=== PATIENT | female | born 1955 | race Two or more races ===

== ENCOUNTER 2023-06-06 18:28 | Emergency (ER) | payer OTHER ==
[~2023-06-06] VITALS: Ht 157.5 cm; Wt 72.6 kg
== END 2023-06-06 21:36 | disposition home or self-care (01) ==
LOC: ER 18:28
DX: S89.82XA Other specified injuries of left lower leg, initial encounter (principal); W01.0XXA Fall on same level from slipping, tripping and stumbling without subsequent striking against object, initial encounter; Y93.E9 Activity, other interior property and clothing maintenance; Y92.018 Other place in single-family (private) house as the place of occurrence of the external cause; Z88.0 Allergy status to penicillin; Z88.8 Allergy status to other drugs, medicaments and biological substances
CPT/HCPCS: 73564; 96372; 99284; J1885